=== PATIENT | male | born 1960 | race Caucasian/White ===

== ENCOUNTER → 2022-02-25 | Outpatient (CLI) | payer SELFPAY ==
[2022-02-25 15:27] LABS: Erythrocyte Sedimentation Rate 5 mm/hr (0-20)
[2022-02-25 15:31] LABS: Absolute Lymphocyte Count 1.48 X10^3/uL (0.83-4.51); Absolute Neutrophil Count 2.3 X10^3/uL (2.0-7.7); Basophil# 0.03 X10^3/uL; Basophil% 0.7 % (0-1); Eosinophil# 0.05 X10^3/uL; Eosinophils% 1.2 % (0-5); Hematocrit 43.1 % (40-54); Hemoglobin 14.9 g/dL (13.0-16.5); Lymphocyte # 1.48 X10^3/ul (0.83-4.51); Lymphocyte % 35.8 % (19-41); Mean Corp Hgb Conc 34.6 g/dL (32-36); Mean Corpuscular Volume 89.6 fL (80-94); Mean Platelet Vol. 11.4 fl (6.2-12.0); Monocyte# 0.24 X10^3/uL; Monocyte% 5.8 % (0-10); NRBC Flagged by Analyzer 0 % (0-5); Neutrophil # 2.32 X10^3/uL (2.7-7.7); Neutrophil % 56.3 % (47-70); Platelet Count 169 K/mm3 (150-450); RBC Distribution Width SD 45.4 fl (35.1-43.9); Red Blood Count 4.81 M/mm3 (4.6-6.2); White Blood Count 4.1 K/mm3 (4.4-11.0)
[2022-02-25 16:30] LABS: AST(SGOT) 14 U/L (15-37); Alanine Aminotransfer ALT/SGPT 31 U/L (16-61); Albumin, Serum 4.4 g/dL (3.2-5.0); Alkaline Phosphatase 68 U/L (45-117); Amylase 55 U/L (25-115); Anion Gap 8 (5-15); BUN 21 mg/dL (7-18); BUN/Creat Ratio 24.6 RATIO (10-20); CRP < 2.90 mg/L (0.0-3.0); Calcium,Total 9.6 mg/dL (8.5-10.1); Chloride 107 mmol/L (98-107); Creatinine, Serum 0.85 mg/dL (0.70-1.30); EST Glomerular Filtration Rate 98 mL/min (>60); Est Glom Filt Rate - Afr Amer 118 mL/min (>60); Globulin 2.2 g/dL (2.2-4.2); Glucose 88 mg/dL (74-106); LDH 197 U/L (87-241); Lipase 196 U/L (73-393); Potassium 4.2 mmol/L (3.5-5.1); Protein, Total 6.6 g/dL (6.4-8.2); Sodium Level 139 mmol/L (136-145)
[2022-03-01 13:07] LABS: Anti-Centromere B Ab <0.2 AI (0.0-0.9); Anti-Chromatin <0.2 AI (0.0-0.9); Anti-Jo <0.2 AI (0.0-0.9); Anti-Scleroderma-70 AB <0.2 AI (0.0-0.9); RNP Ab <0.2 AI (0.0-0.9); SJOGREN'S Anti-SS-A test < 0.2 AI (0.0-0.9); SJOGREN'S Anti-SS-B test < 0.2 AI (0.0-0.9); Smith Ab <0.2 AI (0.0-0.9)
[2022-03-01 15:40] LABS: Anti-dsDNA Ab <1 IU/mL (0-9)
[2022-03-01 16:08] LABS: Albumin 4.3 g/dL (2.9-4.4); Alpha-1-Globulins 0.2 g/dL (0.0-0.4); Alpha-2-Globulins 0.6 g/dL (0.4-1.0); Cytoplasmic Ab (C-ANCA) <1:20 titer (Neg:<1:20); Gamma Globulin 0.6 g/dL (0.4-1.8); Immunoglobulin A 72 mg/dL (90-386); Immunoglobulin E 22 IU/mL (6-495); Immunoglobulin G 659 mg/dL (603-1613); Immunoglobulin M 93 mg/dL (20-172); PROEL- TOTAL PROTEIN 6.5 g/dL (6.0-8.5)
[2022-03-01 17:22] LABS: Perinuclear Ab (P-ANCA) <1:20 titer (Neg:<1:20)
== END | disposition home or self-care (01) ==
LOC: LAB 14:10
PROVIDERS: PCP Family Medicine; Visit Provider Internal Medicine Gastroenterology
DX: R10.9 Unspecified abdominal pain (principal)
CPT/HCPCS: 36415; 80053; 82150; 82784; 82785; 83615; 83690; 84165; 85025; 85652; 86140; 86225; 86235; 86256; 86334

== ENCOUNTER → 2022-02-26 | Outpatient (CLI) | payer SELFPAY ==
[2022-03-02 21:38] LABS: Calprotectin, Stool <16 ug/g (0-120)
[2022-03-05 17:44] LABS: Giardia Lamblia, Stool EIA Negative (Negative); Pancreatic Elastase, Fecal 136 (>200)
== END | disposition home or self-care (01) ==
LOC: LABSPEC 08:35
PROVIDERS: PCP Family Medicine; Visit Provider Internal Medicine Gastroenterology
DX: R10.9 Unspecified abdominal pain (principal); K58.9 Irritable bowel syndrome, unspecified
CPT/HCPCS: 82653; 83630; 83993; 87177; 87209; 87329; 87493; 87506

== ENCOUNTER → 2022-03-03 | Outpatient (CLI) | payer SELFPAY ==
--- NOTE | 2022-03-03 16:00 | CT_ITS ---
STUDY: CT ABDOMEN AND PELVIS WITH AND WITHOUT CONTRAST REASON FOR EXAM: Male, 61 years old. abdominal pain -- pancreatic protocol WEIGHTLOSS 65LBS IN 6MONTHS HX OF CELIAC AND CDIFF RADIATION DOSAGE (If Supplied By Facility): CTDIvol = ( 14.83 ) mGy, DLP = ( 1486.75 ) mGycm TECHNIQUE: Transaxial images were obtained from the dome of the diaphragm to the symphysis pubis with oral contrast. 100ML OF ISOVUE 370 was administered. Multiphasic pancreatic protocol including precontrast scan. Sagittal and coronal images were reconstructed. Individualized dose optimization techniques were used for this CT. COMPARISON: None. FINDINGS: LOWER CHEST: Reticular opacities in the lower lobes likely scarring or subsegmental atelectasis. LIVER: Unremarkable. GALLBLADDER/BILE DUCTS: Gallbladder surgically absent. No biliary dilatation. PANCREAS: Unremarkable. No definite mass identified. No adjacent stranding or fluid collection. SPLEEN: Unremarkable. ADRENAL GLANDS: Unremarkable. KIDNEYS / URETERS: Unremarkable. BOWEL / MESENTERY: No bowel obstruction. Moderate amount of stool throughout the colon. APPENDIX: Identified and normal. No evidence of acute appendicitis. PERITONEUM: No free air. No free fluid. VESSELS: Abdominal aorta is normal caliber. RETROPERITONEUM: Unremarkable. REPRODUCTIVE ORGANS: Unremarkable. BLADDER: Unremarkable. ABDOMINAL WALL: Unremarkable. BONES: No acute abnormality. OTHER: None. CT/CT Abd/Pelvis W/WO Contrast IMPRESSION: No acute findings. Electronically Signed: Caitlin Lee MD at 2:12 EDT ,
== END | disposition home or self-care (01) ==
PROVIDERS: PCP Family Medicine; Visit Provider Internal Medicine Gastroenterology
DX: R10.9 Unspecified abdominal pain (principal)
CPT/HCPCS: 74178; Q9967

== ENCOUNTER → 2022-04-09 | Outpatient (CLI) | payer SELFPAY ==
--- NOTE | 2022-04-09 13:05 | CT_ITS ---
INDICATION: Entergraphy, abnormal peristalsis EXAMINATION: CT ABDOMEN AND PELVIS WITH CONTRAST - CT Abdomen And Pelvis W/ Contrast Injection TECHNIQUE: Helically acquired images were obtained of the abdomen and pelvis following IV contrast. A radiation dose optimization technique was used for this scan. IV Contrast dosage and agent: 100 mL of ISOVUE-370 Oral contrast: None. COMPARISON: 03/03/2022.. FINDINGS: LOWER CHEST: Subsegmental atelectatic changes visualized in the dependent lower lung jeffrey bilaterally.. No cardiomegaly or pericardial effusion. LIVER: Homogeneous. No focal mass. GALLBLADDER AND BILIARY TREE: The gallbladder is surgically absent.. No intra- or extrahepatic biliary ductal dilation. PANCREAS: No focal cystic or solid mass. SPLEEN: The spleen is compressed posteriorly by the distended stomach, spleen demonstrates heterogeneous enhancement. ADRENAL GLANDS: No nodules. KIDNEYS AND URETERS: Normal renal size and position. No hydronephrosis. PERITONEUM: No ascites or free air. No other fluid collection. No evidence of stranding of the peritoneal fat planes. BOWEL: Markedly distended stomach is visualized, thickening of the wall of the gastric outlet visualized on axial series 2 image 35, coronal series 601 image 45 and sagittal series 602 image 59. Mild prominence of the jejunum measuring up to 2.7 cm but no significant distention to suggest obstruction, subtle enhancement of the wall of the jejunum and duodenum is seen. Fluid-filled loops of small bowel visualized most prominent in the ileum, no evidence of obstruction is visualized. The appendix is visualized and is unremarkable. Abundance of stool is visualized in the large bowel. Scattered diverticular disease but no evidence of acute diverticulitis. LYMPH NODES: No enlarged mesenteric or retroperitoneal lymph nodes. VESSELS: Aorta is non-dilated. URINARY BLADDER: Unremarkable. REPRODUCTIVE ORGANS: No pelvic masses. ABDOMINAL WALL: No discrete abdominal or pelvic wall hernia. BONES: No lytic or blastic abnormality. CT/Abdomen/Pelvis WITH Contrast IMPRESSION: Markedly distended stomach with circumferential wall thickening visualized in the gastric outlet. Fluid-filled loops of small bowel visualized most prominent in the ileum. No evidence of inflammatory changes in the adjacent mesentery/peritoneum to suggest ileitis Abundance of stool in the large bowel. Electronically Signed: Axel Esqueda MD at 16:33 EDT ,
[2022-04-13 16:55] LABS: H. PYLORI STOOL AG Negative (Negative)
== END | disposition home or self-care (01) ==
PROVIDERS: PCP Family Medicine; Visit Provider Internal Medicine Gastroenterology
DX: R10.9 Unspecified abdominal pain (principal)
CPT/HCPCS: 74177; 82274; Q9967

== ENCOUNTER 2022-04-27 13:14 | Day surgery (SDC) | payer SELFPAY ==
[2022-04-27] VITALS (7 sets, daily range): BP systolic 99–119; BP diastolic 63–83; PULSE 53–62; RESP 16; TEMP 36.2–36.6; O2SAT 99–100; BMI 23.9
[2022-04-27] MEDS: Lactated Ringers 1,000 ML 15 ML IV (13:51)
--- NOTE | 2022-04-27 14:30 | IMM_PTH ---
PATIENT: BUNNY CACERES LOC: EN U#:[id number] AGE/SX: 62/M ROOM: RE04/27/[address]: Dr. Chuck Rodriguez DO : 1960 BED: DIS: 04/27/2022 SPEC #: [id number] RECD: 04/28/22 12:29 STATUS: JERZY REQ #: [id number] JIMMY: 04/27/22 14:[address]: Chuck Rodriguez DEPT: IMMUNOHISTOCHEMISTRY RECD BY: Martha De Santiago ENTERED: 04/28/22 12:29 SP TYPE: IMMUNO OTHR DR: Dr. Imani Sargent MD Tissues: C - Stomach, NOS Procedures: H Pylori (initial) PHYSICIAN & INSTITUTION [place] [id number] SPECIMEN INFORMATION: Tissue Source: C ? Gastric ulcer biopsy Clinical Info: Irritable bowel syndrome Specimen Number: [id number] CPT code: 83221 METHODOLOGY: Deparaffinized sections of prefer/formalin-fixed tissue or PAP/DQ stained slides are incubated with monoclonal/polyclonal antibodies/oligonucleotide probes. Localization is made via biotin free immunoperoxidase method. Appropriate controls are performed and reacted as expected. Results on target cell population are indicated in the following table: RESULTS: ANTIBODY / CLONE RESULT Block C H Pylori (polyclonal) negative These tests were developed and their performance characteristics determined by [facility]. They may not have been cleared or approved by the U.S. Food and Drug Administration. The FDA has determined that such clearance or approval is not necessary. The above immunohistochemical/dualISH markers are ordered and reviewed by the Pathologist. INTERPRETATION: C. Gastric ulcer, biopsy: Negative for Helicobacter pylori organisms. SJ:jacqueline 04/29/2022
--- NOTE | 2022-04-27 14:30 | EGD_PTH ---
PATIENT: BUNNY CACERES LOC: EN U#:[id number] AGE/SX: 62/M ROOM: RE04/27/[address]: Dr. Chuck Rodriguez DO : 1960 BED: DIS: 04/27/2022 SPEC #: [id number] RECD: 04/27/22 16:49 STATUS: JERZY RERangel #: [id number] JIMMY: 04/27/22 14:[address]: Chuck Rodriguez DEPT: SURGICAL PATHOLOGY RECD BY: Smita Craig ENTERED: 04/28/22 11:12 SP TYPE: EGD BIOPSY [facility] DR: Dr. Imani Sargent MD Tissues: A - Jejunum, NOS B - Duodenum, NOS C - Gastric mucous membrane D - Esophagus, NOS E - Ileum, NOS F - Sigmoid colon biopsy G - Rectum, NOS Procedures: Surgery Specimen Level IV HEADER OPERATION: Colonoscopy, EGD ([facility]) PRE-OP DIAGNOSIS: Irritable bowel syndrome TISSUE SUBMITTED: A ? Jejunum biopsy, B ? Duodenum biopsy, C ? Gastric ulcer biopsy, D ? Esophagus biopsy, E ? Terminal ileum biopsy, F ? Sigmoid colon biopsy, G ? Rectal polyp biopsy MICROSCOPIC DIAGNOSIS A. Jejunum, biopsy: A fragment of small intestinal mucosa, no pathologic diagnosis. B. Duodenum, biopsy: Fragments of small intestinal mucosa, no pathologic diagnosis. C. Gastric ulcer, biopsy: Fragments of gastric mucosa with focal ulceration, fibrin exudation, congestion, hemorrhage and chronic inflammation. See comment. D. Esophagus, biopsy: Fragments of squamous epithelium with acute inflammation. See comment. E. Terminal ileum, biopsy: A fragment of small intestinal mucosa, no pathologic diagnosis. F. Sigmoid colon, biopsy: Fragments of colonic mucosa, no pathologic diagnosis. G. Rectal polyp, biopsy: Hyperplastic polyp. SJ:jacqueline 04/29/2022 COMMENT C. The results of immunohistochemistry for Helicobacter pylori will be reported separately ([id number]). D. Special stain for fungi is positive for organisms (yeast and pseudohyphae) consistent with Sharon species; matched control is appropriate. Focal bacterial colonization is also noted. MICROSCOPIC DESCRIPTION Slides are reviewed. GROSS DESCRIPTION A - Received in fixative is one container labeled with the patient's name and designated jejunum biopsy. The specimen consists of one irregular fragment of light carr soft tissue that measures 0.7 x 0.3 x 0.1 cm. The specimen is totally submitted in one cassette. B - Received in fixative is one container labeled with the patient's name and designated duodenum biopsy. The specimen consists of two irregular fragments of light carr soft tissue that in aggregate measure 0.6 x 0.6 x 0.1 cm. The specimen is totally submitted in one cassette. C - Received in fixative is one container labeled with the patient's name and designated gastric ulcer biopsy. The specimen consists of two irregular fragments of light carr soft tissue that in aggregate measure 1 x 0.3 x 0.1 cm. The specimen is totally submitted in one cassette. D - Received in fixative is one container labeled with the patient's name and designated esophagus biopsy. The specimen consists of multiple irregular fragments of light carr soft tissue that in aggregate measure 0.5 x 0.3 x 0.1 cm. The specimen is totally submitted in one cassette. E - Received in fixative is one container labeled with the patient's name and designated terminal ileum biopsy. The specimen consists of one irregular fragment of light carr soft tissue that measures 0.6 x 0.3 x 0.1 cm. The specimen is totally submitted in one cassette. F - Received in fixative is one container labeled with the patient's name and designated sigmoid colon biopsy. The specimen consists of two irregular fragments of light carr soft tissue that in aggregate measure 0.5 x 0.5 x 0.1 cm. The specimen is totally submitted in one cassette. G - Received in fixative is one container labeled with the patient's name and designated rectal polyp. The specimen consists of one irregular fragment of light carr soft tissue that measures 0.3 x 0.2 x 0.1 cm. The specimen is totally submitted in one cassette. / AM:jacqueline 04/28/2022 TC:2 CPT: 63509 x7, 91624
--- NOTE | 2022-04-27 14:42 | PCM.HP.BLA ---
History and Physical Date of Admission: 04/27/22 HUMBERTO CACERES, is a 62 M who presents to the office today for Follow up. Humberto established with this clinic 02.25.22 with referral from PCP for evaluation of post prandial diarrhea (can be oily) with abdominal pain/cramping and weight loss of 65lbs since fall 2020. Sees a manufacturing helper in [place] where he lives part of the year who treated him for presumed gluten intolerance, candidiasis and SIBO, treated with Nystatin. Previously attempted Creon and cholestyramine without change of symptoms. Symptoms are typically present postprandially. Typically eats protein shakes and pureed foods and eats this 3-4 times a day. These symptoms have been presenting in a cyclic pattern in which they are present for several weeks and absent for several weeks. Several month prior he was experiencing yellowing of the hands and feet. History of cholecystectomy with use of cholestyramine with diarrhea is most uncomfortable. Declines to attempt SSRI, Cymbalta or buspar; has some relief with use of Ativan. Presented to [facility] 08.07.21 with GI upset, nausea, indigestion and diarrhea; he was offered admission and declined he was discharged with instruction to follow up outpatient. PMH anxiety; Conner?s esophagus; tension headache; ELENA; osteoarthritis; TMJ; insomnia. FH without cancer. CT scan 08.08.2021 which PCP reports no acute changes. EGD 08.12.21 at [facility] finding sizable hiatal hernia; esophageal erythema; bile reflux; erythematous gastric body, antrum and duodenopathy; one healing duodenal ulcer. Pathology revealed Jennifer gland hyperplasia. Started on Carafate QID and protonix QD, which were ineffective. US RUQ 08.12.21 [facility] with unremarkable findings. Biochemical workup CMP, CRP, LDH, CBC, ESR, SHERIN comp, ANCA, GAME, amylase, lipase without additional abnormalities other than listed below. WBC L4.1, AST L14, IgA L72, FAIZAN albumin/globulin H2.0 Stool testing calprotectin, enteric, lactoferrin, giardia, C.Difficile without abnormality. Stool elastase L136 CT abd/pel 03.03.22 without acute or chronic abnormalities. Noted cholecystectomy. Weight 02.25.22 174lbs Plan last visit 02.25.22: Abd pain ? likely secondary to bowel syndrome but could be infectious event developed while in [place] on vacation leaving to postinfectious IBS-D. likely will need capsule endoscopy. Recommend biochemical workup. Start budesonide and vancomycin. Since LV he has been having intermittent symptoms that are occurring most days of the week. He is avoiding animal protein as it ?slows him down?. Feels the antibiotic or the steroid were helpful with burning pain. Reports BM 2-3 times a day. Has not started Carafate or protonix, he feels these make him ill. Feels the steroid may have caused sores in the last six inches of his rectum, this burning stopped following cessation of budesonide. His largest concern is the abdominal cramping which he believes to be associated with the small bowel that will then cause weakness. ROS Const Constitutional: No anorexia, fatigue, fever(s), weight change or sleep problems Eyes Eyes: No change in vision ENT ENT: No abnormal hearing, difficulty swallowing, mouth lesions, tongue swelling or throat swelling Resp Respiratory: No cough or shortness of breath Cardio Cardiology: No chest pain at rest, chest pain with exertion, shortness of breath or dyspnea on exertion Gastro GI: No difficulty swallowing Genitourinary Male: No difficulty urinating or burning urination Musc Musculoskeletal: No joint pain, joint swelling, muscle weakness or decreased muscle mass Skin Skin: No hair loss in leg, yellowing of the eye, itchy eyes, rash, skin ulcer or skin swelling Neuro Neurology: No abnormal hearing, abnormal movements, confusion, unsteady gait/balance or memory loss Psych Psychiatric: No anxiety, No confusion and No memory loss Endo Endocrine: No fatigue or weight change Aller/Imm Allergy/Immunologic: No itchy eyes, throat swelling or tongue swelling Melvin/Lymp Hematologic/Lymphatic: No easy bleeding, easy bruising or enlarged lymph nodes Exam Const General: cooperative and comfortable Nutritional Appearance: average body habitus and well nourished [facility] Head: normal to inspection Ears: hearing grossly normal bilaterally Nose: external nose normal Face and sinus: normal facial exam Mouth: oral mucosae normal Throat: posterior oropharynx normal Eyes General: appearance normal, both eyes and all related structures Neck Neck: normal visual inspection Chest Chest palpation & inspection: normal inspection of the chest and normal palpation of entire chest wall Resp Effort & Inspection: normal respiratory effort Auscultation: Bilateral: Clear to Auscultation Cardio Palpation: normal PMI Rate: regular rate Rhythm: regular rhythm GI Inspection: normal to inspection Auscultation: normal bowel sounds Percussion: normal to percussion Palpation: no hepatosplenomegaly Skin General: no rashes or lesions noted Neuro General: patient alert Extrem General: normal to inspection Psych Affect: normal affect Quality Reporting Tobacco Screening ([facility] 138) Smoking Status: Former smoker Assessment and Plan Assessment and Plan (1) IBS (irritable bowel syndrome): ?Status:?Chronic ?Plan: His interval bowel syndrome is better since being put on the budesonide and vancomycin therapy.? His last CT scan had shown some jejunitis, duodenitis and possible gastritis.? I recommend that he go back on the budesonide at 3 mg dose instead of a 9 mg dose.? We went over the possible etiologies of abdominal pain including a false negative celiac test and due to his very low IgA levels, superior mesenteric artery syndrome and bacterial overgrowth.? I told him that if he does have superior mesenteric artery syndrome cannot be full meal and it has to be mostly soft or liquid content until he gained weight.? He was treated for bacterial overgrowth with antibiotics.? For the inflammation seen in the bowels we will put him back on budesonide 3 mg per day. This follow-up visit took approximately 40 minutes. I have re-examined the patient. There are no clinical changes since date of exam.
--- NOTE | 2022-04-27 15:49 | OP.EGD_ITS ---
Patient Name: Humberto Hernandes Procedure Date: 04/27/2022 2:43 PM Date of : 1960 Age: 62 Procedure: Upper GI endoscopy Indications: Epigastric abdominal pain Providers: Chuck Rodriguez DO Referring MD: Imani Sargent Md Medicines: Monitored Anesthesia Care Patient Profile: This is a 62 year old male. Refer to note in patient chart for documentation of history and physical. Patient has symptoms of chronic abdominal cramping and chronic epigastric abdominal pain. Complications: No immediate complications. Procedure: Pre-Anesthesia Assessment: - Prior to the procedure, a History and Physical was performed, and patient medications and allergies were reviewed. The risks and benefits of the procedure and the sedation options and risks were discussed with the patient. All questions were answered and informed consent was obtained. Patient identification and proposed procedure were verified by the physician in the pre-procedure area. Mental Status Examination: alert and oriented. Airway Examination: normal oropharyngeal airway and neck mobility. Respiratory Examination: clear to auscultation. CV Examination: normal. Prophylactic Antibiotics: The patient does not require prophylactic antibiotics. Prior Anticoagulants: The patient has taken no previous anticoagulant or antiplatelet agents. After reviewing the risks and benefits, the patient was deemed in satisfactory condition to undergo the procedure. The anesthesia plan was to use moderate sedation / analgesia (conscious sedation). Immediately prior to administration of medications, the patient was re-assessed for adequacy to receive sedatives. The heart rate, respiratory rate, oxygen saturations, blood pressure, adequacy of pulmonary ventilation, and response to care were monitored throughout the procedure. The physical status of the patient was re-assessed after the procedure. After obtaining informed consent, the endoscope was passed under direct vision. Throughout the procedure, the patient's blood pressure, pulse, and oxygen saturations were monitored continuously. The colonoscope was introduced through the mouth, and advanced to the second part of duodenum. The upper GI endoscopy was accomplished without difficulty. The patient tolerated the procedure well. Scope In: 2:54:52 PM Scope Out: 3:03:56 PM Total Procedure Duration Time 0 hours 9 minutes 4 seconds Findings: Patchy, white plaques were found in the proximal esophagus and in the mid esophagus. Biopsies were taken with a cold forceps for histology. Verification of patient identification for the specimen was done. Estimated blood loss was minimal. Three oozing cratered gastric ulcers were found in the stomach. The largest lesion was 6 mm in largest dimension. Coagulation for hemostasis using monopolar probe was successful. Estimated blood loss was minimal. Biopsies were taken with a cold forceps for histology. Verification of patient identification for the specimen was done. Estimated blood loss was minimal. Patchy mild inflammation characterized by erythema was found in the third portion of the duodenum. Biopsies were taken with a cold forceps for histology. Verification of patient identification for the specimen was done. Estimated blood loss was minimal. Patchy mildly erythematous mucosa without active bleeding and with no stigmata of bleeding was found in the jejunum. Biopsies were taken with a cold forceps for histology. Verification of patient identification for the specimen was done. Estimated blood loss was minimal. Impression: - Esophageal plaques were found, consistent with candidiasis. Biopsied. - Oozing gastric ulcers. Treated with a monopolar probe. Biopsied. - Duodenitis. Biopsied. - Erythematous (hyperemic) jejunal mucosa. Biopsied. Recommendation: - Written discharge instructions were provided to the patient. - The signs and symptoms of potential delayed complications were discussed with the patient. - Patient has a contact number available for emergencies. - Return to normal activities tomorrow. - Resume previous diet. - Continue present medications. Procedure Code(s): --- Professional --- 45360, 59, Esophagogastroduodenoscopy, flexible, transoral; with control of bleeding, any method 39048, 51, Esophagogastroduodenoscopy, flexible, transoral; with biopsy, single or multiple CPT copyright 2017 [employer]. All rights reserved. The codes documented in this report are preliminary and upon employment case manager review may be revised to meet current compliance requirements. Chuck Rodriguez DO 04/27/2022 3:48:54 PM This report has been signed electronically. Number of Addenda: 1 Note Initiated On: 04/27/2022 2:43 PM Addendum Number: 1 Addendum Date: 06/10/2022 6:06:22 AM MAC was used as sedation for this procedure. Chuck Rodriguez DO 06/10/2022 6:06:28 AM This report has been signed electronically.
--- NOTE | 2022-04-27 15:49 | OP.CCLET_ITS ---
06/10/2022 Imani Sargent Md Re : Upper GI endoscopy procedure for Humberto Hernandes Dear [place] This procedure was performed on Wednesday, April 27, 2022. My impressions and recommendations are as follows: Impressions : - Esophageal plaques were found, consistent with candidiasis. Biopsied. - Oozing gastric ulcers. Treated with a monopolar probe. Biopsied. - Duodenitis. Biopsied. - Erythematous (hyperemic) jejunal mucosa. Biopsied. Recommendations : - Written discharge instructions were provided to the patient. - The signs and symptoms of potential delayed complications were discussed with the patient. - Patient has a contact number available for emergencies. - Return to normal activities tomorrow. - Resume previous diet. - Continue present medications. My findings are described in the full procedure note, which is enclosed. If I can be of further assistance, please feel free to contact me at . Sincerely, Chuck Rodriguez, 04/27/2022 3:48:54 PM This report has been signed electronically.
--- NOTE | 2022-04-27 15:54 | OP.CCLET_ITS ---
06/10/2022 Imani Sargent Md Re : Colonoscopy procedure for Humberto Hernandes Dear [place] This procedure was performed on Wednesday, April 27, 2022. My impressions and recommendations are as follows: Impressions : - One 5 mm polyp in the rectum, removed with a cold snare. Resected and retrieved. - Diverticulosis in the sigmoid colon. - Congested mucosa in the sigmoid colon, at the splenic flexure and at the hepatic flexure. Biopsied. - Congested mucosa in the terminal ileum. Biopsied. Recommendations : - Written discharge instructions were provided to the patient. - The signs and symptoms of potential delayed complications were discussed with the patient. - Patient has a contact number available for emergencies. - Return to normal activities tomorrow. - Resume previous diet. - Continue present medications. - Await pathology results. - Repeat colonoscopy is recommended. The colonoscopy date will be determined after pathology results from today's exam become available for review. My findings are described in the full procedure note, which is enclosed. If I can be of further assistance, please feel free to contact me at . Sincerely, Chuck Rodriguez DO 04/27/2022 3:53:18 PM This report has been signed electronically.
--- NOTE | 2022-04-27 15:54 | OP.COLON_ITS ---
Patient Name: Humberto Hernandes Procedure Date: 04/27/2022 3:04 PM Date of : 1960 Age: 62 Procedure: Colonoscopy Indications: Chronic diarrhea Providers: Chuck Rodriguez DO Referring MD: Imani Sargent Md Medicines: Monitored Anesthesia Care Patient Profile: This is a 62 year old male. Refer to note in patient chart for documentation of history and physical. Patient has symptoms of chronic abdominal cramping and chronic epigastric abdominal pain. Last Colonoscopy: within the past 3 years. Complications: No immediate complications. Procedure: Pre-Anesthesia Assessment: - Prior to the procedure, a History and Physical was performed, and patient medications and allergies were reviewed. The risks and benefits of the procedure and the sedation options and risks were discussed with the patient. All questions were answered and informed consent was obtained. Patient identification and proposed procedure were verified by the physician in the pre-procedure area. Mental Status Examination: alert and oriented. Airway Examination: normal oropharyngeal airway and neck mobility. Respiratory Examination: clear to auscultation. CV Examination: normal. Prophylactic Antibiotics: The patient does not require prophylactic antibiotics. Prior Anticoagulants: The patient has taken no previous anticoagulant or antiplatelet agents. After reviewing the risks and benefits, the patient was deemed in satisfactory condition to undergo the procedure. The anesthesia plan was to use moderate sedation / analgesia (conscious sedation). Immediately prior to administration of medications, the patient was re-assessed for adequacy to receive sedatives. The heart rate, respiratory rate, oxygen saturations, blood pressure, adequacy of pulmonary ventilation, and response to care were monitored throughout the procedure. The physical status of the patient was re-assessed after the procedure. After I obtained informed consent, the scope was passed under direct vision. Throughout the procedure, the patient's blood pressure, pulse, and oxygen saturations were monitored continuously. The colonoscope was introduced through the anus and advanced to the terminal ileum. The colonoscopy was performed without difficulty. The patient tolerated the procedure well. The quality of the bowel preparation was good. Scope In: 3:07:10 PM Scope Withdrawal Time 0 hours 9 minutes 55 seconds Scope Out: 3:26:16 PM Total Procedure Duration Time 0 hours 19 minutes 6 seconds Findings: The perianal and digital rectal examinations were normal. A 5 mm polyp was found in the rectum. The polyp was sessile. The polyp was removed with a cold snare. Resection and retrieval were complete. Verification of patient identification for the specimen was done. Estimated blood loss was minimal. Multiple small-mouthed diverticula were found in the sigmoid colon. An area of mildly congested mucosa was found in the sigmoid colon, at the splenic flexure and at the hepatic flexure. Biopsies were taken with a cold forceps for histology. Verification of patient identification for the specimen was done. Estimated blood loss was minimal. A patchy area of the terminal ileum was congested. Biopsies were taken with a cold forceps for histology. Verification of patient identification for the specimen was done. Estimated blood loss was minimal. Impression: - One 5 mm polyp in the rectum, removed with a cold snare. Resected and retrieved. - Diverticulosis in the sigmoid colon. - Congested mucosa in the sigmoid colon, at the splenic flexure and at the hepatic flexure. Biopsied. - Congested mucosa in the terminal ileum. Biopsied. Recommendation: - Written discharge instructions were provided to the patient. - The signs and symptoms of potential delayed complications were discussed with the patient. - Patient has a contact number available for emergencies. - Return to normal activities tomorrow. - Resume previous diet. - Continue present medications. - Await pathology results. - Repeat colonoscopy is recommended. The colonoscopy date will be determined after pathology results from today's exam become available for review. Procedure Code(s): --- Professional --- 30260, Colonoscopy, flexible; with removal of tumor(s), polyp(s), or other lesion(s) by snare technique 15420, 59, Colonoscopy, flexible; with biopsy, single or multiple CPT copyright 2017 [employer]. All rights reserved. The codes documented in this report are preliminary and upon distribution center associate review may be revised to meet current compliance requirements. Chuck Rodriguez DO 04/27/2022 3:53:18 PM This report has been signed electronically. Number of Addenda: 1 Note Initiated On: 04/27/2022 3:04 PM Addendum Number: 1 Addendum Date: 06/10/2022 6:06:37 AM MAC was used as sedation for this procedure. Chuck Rodriguez DO 06/10/2022 6:06:41 AM This report has been signed electronically.
== END 2022-04-27 16:40 | disposition home or self-care (01) ==
LOC: EN 13:20 → AC 13:22
PROVIDERS: PCP Family Medicine; Referring Provider Family Medicine; Visit Provider Internal Medicine Gastroenterology
PROC: 0DJD8ZZ Inspection of Lower Intestinal Tract, Via Natural or Artificial Opening Endoscopic (ICD-10-PCS; CPT 45378; principal; 2022-04-27 14:25)
DX: K25.4 Chronic or unspecified gastric ulcer with hemorrhage (principal); K31.89 Other diseases of stomach and duodenum; K20.90 Esophagitis, unspecified without bleeding; K63.89 Other specified diseases of intestine; K57.30 Diverticulosis of large intestine without perforation or abscess without bleeding; K62.1 Rectal polyp; K58.9 Irritable bowel syndrome, unspecified; R63.4 Abnormal weight loss; Z87.891 Personal history of nicotine dependence; Z68.23 Body mass index [BMI] 23.0-23.9, adult
CPT/HCPCS: 43239; 43255; 45385; 45380; 88305; 88342; J7120; J2405

== ENCOUNTER → 2023-01-28 | Outpatient (CLI) | payer SELFPAY ==
[2023-01-28 16:43] LABS: Absolute Neutrophil Count 2.9 X10^3/uL (2.0-7.7); Basophil# 0.03 X10^3/uL; Basophil% 0.6 % (0-1); Eosinophil# 0.05 X10^3/uL; Hematocrit 41.5 % (40-54); Hemoglobin 14.2 g/dL (13.0-16.5); Lymphocyte % 33.9 % (19-41); Mean Corp Hgb Conc 34.2 g/dL (32-36); Mean Corpuscular Hgb 31.7 pg (27.0-32.0); Mean Corpuscular Volume 92.6 fL (80-94); Mean Platelet Vol. 10.8 fl (6.2-12.0); Monocyte# 0.38 X10^3/uL; Monocyte% 7.6 % (0-10); NRBC Flagged by Analyzer 0 % (0-5); Neutrophil # 2.85 X10^3/uL (2.7-7.7); Neutrophil % 56.7 % (47-70); Platelet Count 172 K/mm3 (150-450); RBC Distribution Width CV 12.7 % (11.6-14.6); RBC Distribution Width SD 43.5 fl (35.1-43.9); Red Blood Count 4.48 M/mm3 (4.6-6.2)
[2023-01-28 16:45] LABS: Erythrocyte Sedimentation Rate 2 mm/hr (0-20)
[2023-01-28 16:58] LABS: ALB/GLOB Ratio 1.5 RATIO (0.9-2.4); AST(SGOT) 18 U/L (15-37); Alanine Aminotransfer ALT/SGPT 19 U/L (16-61); Albumin, Serum 3.9 g/dL (3.2-5.0); Alkaline Phosphatase 77 U/L (45-117); Amylase 64 U/L (25-115); Anion Gap 6 (5-15); BUN 21 mg/dL (7-18); BUN/Creat Ratio 24.2 RATIO (10-20); CRP < 2.90 mg/L (0.0-3.0); Calcium,Total 9.1 mg/dL (8.5-10.1); Chloride 108 mmol/L (98-107); Creatinine, Serum 0.87 mg/dL (0.70-1.30); EST Glomerular Filtration Rate 95 mL/min (>60); Est Glom Filt Rate - Afr Amer 115 mL/min (>60); Globulin 2.6 g/dL (2.2-4.2); Glucose 101 mg/dL (74-106); Lipase 51 U/L (13-75); Potassium 3.9 mmol/L (3.5-5.1); Protein, Total 6.5 g/dL (6.4-8.2); Sodium Level 141 mmol/L (136-145)
== END | disposition home or self-care (01) ==
PROVIDERS: PCP Family Medicine; Referring Provider Nurse Practitioner Adult Health; Visit Provider Nurse Practitioner Adult Health
DX: K86.81 Exocrine pancreatic insufficiency (principal); D80.2 Selective deficiency of immunoglobulin A [IgA]
CPT/HCPCS: 36415; 80053; 82150; 83690; 85025; 85652; 86140

== ENCOUNTER → 2023-02-18 | Outpatient (CLI) | payer SELFPAY ==
[2023-02-23 14:10] LABS: Pancreatic Elastase, Fecal 206 (>200)
== END | disposition home or self-care (01) ==
LOC: LABSPEC 08:44
PROVIDERS: PCP Family Medicine; Visit Provider Nurse Practitioner Adult Health
DX: K86.81 Exocrine pancreatic insufficiency (principal)
CPT/HCPCS: 82653

== ENCOUNTER → 2024-01-23 | Outpatient (CLI) | payer SELFPAY ==
[2024-01-23 15:39] LABS: Absolute Lymphocyte Count 1.41 X10^3/uL (0.83-4.51); Absolute Neutrophil Count 2.8 X10^3/uL (2.0-7.7); Basophil# 0.04 X10^3/uL; Basophil% 0.9 % (0-1); Eosinophil# 0.06 X10^3/uL; Eosinophils% 1.3 % (0-5); Hematocrit 42.9 % (40-54); Hemoglobin 14.4 g/dL (13.0-16.5); Lymphocyte # 1.41 X10^3/ul (0.83-4.51); Lymphocyte % 30.1 % (19-41); Mean Corp Hgb Conc 33.6 g/dL (32-36); Mean Corpuscular Volume 92.3 fL (80-94); Mean Platelet Vol. 10.3 fl (6.2-12.0); Monocyte# 0.35 X10^3/uL; Monocyte% 7.5 % (0-10); NRBC Flagged by Analyzer 0 % (0-5); Neutrophil # 2.82 X10^3/uL (2.7-7.7); Platelet Count 177 K/mm3 (150-450); RBC Distribution Width CV 13.5 % (11.6-14.6); RBC Distribution Width SD 46.4 fl (35.1-43.9); Red Blood Count 4.65 M/mm3 (4.6-6.2); White Blood Count 4.7 K/mm3 (4.4-11.0)
[2024-01-23 16:12] LABS: Vitamin B12 655 pg/mL (211-911)
[2024-01-23 16:36] LABS: Erythrocyte Sedimentation Rate 2 mm/hr (0-20)
[2024-01-23 19:02] LABS: Amylase 68 U/L (25-115); CPK Total, Creatine Kinase 117 U/L (39-308); CRP < 2.90 mg/L (0.0-3.0); Lipase 58 U/L (13-75); Prolactin 2.7 ng/mL
[2024-01-27 10:09] LABS: Adrenocorticotropic Hormone 11.9 pg/mL (7.2-63.3); Aldolase 4.1 U/L (3.3-10.3); Dopamine, Pl <30 pg/mL (0-48); Epinephrine, Pl 56 pg/mL (0-62); Gastrin, Serum 33 pg/mL (0-115); Norepinephrine, Pl 584 pg/mL (0-874)
== END | disposition home or self-care (01) ==
LOC: LAB 15:01
PROVIDERS: PCP Family Medicine; Referring Provider Internal Medicine Gastroenterology; Visit Provider Internal Medicine Gastroenterology
DX: D80.2 Selective deficiency of immunoglobulin A [IgA] (principal); K86.81 Exocrine pancreatic insufficiency
CPT/HCPCS: 36415; 82024; 82085; 82150; 82384; 82533; 82550; 82607; 82746; 82941; 83690; 84146; 85025; 85652; 86140

== ENCOUNTER → 2024-03-29 | Outpatient (CLI) | payer SELFPAY ==
[2024-03-29 10:27] LABS: Absolute Lymphocyte Count 1.68 X10^3/uL (0.83-4.51); Absolute Neutrophil Count 2.3 X10^3/uL (2.0-7.7); Basophil# 0.02 X10^3/uL; Basophil% 0.4 % (0-1); Eosinophil# 0.05 X10^3/uL; Eosinophils% 1.1 % (0-5); Hematocrit 40.2 % (40-54); Hemoglobin 13.5 g/dL (13.0-16.5); Lymphocyte # 1.68 X10^3/ul (0.83-4.51); Lymphocyte % 37.6 % (19-41); Mean Corp Hgb Conc 33.6 g/dL (32-36); Mean Corpuscular Volume 92.2 fL (80-94); Mean Platelet Vol. 10.1 fl (6.2-12.0); Monocyte% 8.9 % (0-10); NRBC Flagged by Analyzer 0 % (0-5); Neutrophil # 2.31 X10^3/uL (2.7-7.7); Neutrophil % 51.8 % (47-70); Platelet Count 169 K/mm3 (150-450); RBC Distribution Width SD 47.8 fl (35.1-43.9); Red Blood Count 4.36 M/mm3 (4.6-6.2); White Blood Count 4.5 K/mm3 (4.4-11.0)
[2024-03-29 11:07] LABS: Anion Gap 2 (5-15); BUN 18 mg/dL (7-18); BUN/Creat Ratio 19.2 RATIO (10-20); Chloride 107 mmol/L (98-107); Creatinine, Serum 0.94 mg/dL (0.70-1.30); EST Glomerular Filtration Rate 87 mL/min (>60); Est Glom Filt Rate - Afr Amer 105 mL/min (>60); Glucose 90 mg/dL (74-106); Potassium 4.5 mmol/L (3.5-5.1); Sodium Level 140 mmol/L (136-145)
--- NOTE | 2024-03-29 16:48 | PCM.TILTTABL ---
Staff Staff: Tiffany Reddy and Myra Jones Summary Pre Test Resting HR: 61 Pre Test Resting BP: 126/82 Minimum Test HR: 56 Maximum Test HR: 67 Minimum Test BP: 112/88 Maximum Test BP: 134/93 Reason for Test Termination: Reached Maximum Test Time Physician Tilt Table Report Patient's Physicians Primary Care Physician: Imani Sargent Indications/Diagnosis: Presyncope Procedure Comments: Patient was brought to the echo lab in the postabsorptive nonsedated state. Initial blood pressure and heart rate were obtained. Heart rate of 64 bpm with a blood pressure 129/85 mmHg. EKG demonstrated normal sinus rhythm. The patient was then put in the 70 degree head upright tilt position. Test was continued for total of 20 minutes with patient exhibiting no symptoms whatsoever. Blood pressure and heart rate remained stable. Patient was then placed in the recumbent position and EKG monitoring continued. Summary: Negative head upright tilt table test.
[2024-03-29 16:51] VITALS: BP 112/88; BP 126/82; BP 134/93
== END | disposition home or self-care (01) ==
PROVIDERS: PCP Family Medicine; Referring Provider Internal Medicine Gastroenterology; Visit Provider Internal Medicine Gastroenterology
DX: K58.9 Irritable bowel syndrome, unspecified (principal); D80.2 Selective deficiency of immunoglobulin A [IgA]; R10.9 Unspecified abdominal pain; K86.81 Exocrine pancreatic insufficiency
CPT/HCPCS: 36415; 80048; 85025; 93660; J7040; A4216